=== PATIENT | male | born 1990 | race Caucasian/White ===

== ENCOUNTER 2023-06-30 19:55 | Emergency (ER) | payer OTHER ==
[2023-06-30 20:14] VITALS: TEMP 97; O2SAT 98
--- NOTE | 2023-06-30 20:17 | ERPHSYRPT ---
- History of Present Illness Time Seen by Provider: 06/30/23 20:07 Source: patient Exam Limitations: no limitations Physician History: About 1 hour ago pt was at work([employer] in [place], [place]) cutting a hose with a knife which slipped and cut his left hand; denies current numbness of left hand digits; last tetanus is within 5 years. Allergies/Adverse Reactions: amoxicillin Allergy (Unknown, Verified 06/30/23 20:03) Penicillins Allergy (Unknown, Verified 06/30/23 20:03) - Review of Systems Musculoskeletal: Injury (laceration of left hand) - Nursing Vital Signs Nursing Vital Signs: Initial Vital Signs Pulse Rate 86 06/30/23 20:02 Respiratory Rate 18 06/30/23 20:02 Blood Pressure 129/88 06/30/23 20:02 O2 Sat by Pulse Oximetry 94 L 06/30/23 20:02 Pain Scale Pain Intensity 4 - Physical Exam General Appearance: alert, other (exam limited to left upper extremity) Shoulder Exam: normal ROM Elbow/Forearm Exam: normal ROM Wrist Exam: normal ROM Hand Exam: normal ROM (normal flexion & extension of left hand digits against resistance) Neuro/Tendon Exam: normal sensation, normal motor functions Mental Status Exam: alert, cooperative Skin Exam: laceration (2 cm laceration of proximal ulnar aspect of left palm) Procedures - Laceration/Wound Repair Left Hand Wound Location: Left, hand Wound Length (cm): 2 Wound's Depth, Shape: linear Irrigated: Yes Hibiclens Prep: Yes Anesthesia: 1% Lidocaine Volume Anesthetic (ccs): 3 Wound Repaired With: sutures Suture Size/Type: 4-0, prolene Number of Sutures: 4 Layer Closure?: No Sterile Dressing Applied?: Yes Ordered Tests: Active Orders 24 hr Category Date Time Status Prepare for Sutures STAT Care 06/30/23 20:14 Active Sutures STAT Care 06/30/23 20:15 Active Wound Care STAT Care 06/30/23 20:14 Active Medication Summary Discontinued Medications Generic Name Dose Route Start Last Admin Trade Name Freq PRN Reason Stop Dose Admin Ibuprofen 600 mg 06/30/23 20:16 06/30/23 20:20 Ibuprofen 600 Mg Tablet PO 06/30/23 20:17 600 mg STAT ONE Administration Ibuprofen Confirm 06/30/23 20:19 Ibuprofen 600 Mg Tablet Administered 06/30/23 20:20 Dose 600 mg .ROUTE .STK-MED ONE Lidocaine HCl 5 ml 06/30/23 20:14 06/30/23 20:21 Lidocaine Hcl 1% 20 Ml Mdv 20 Ml Ml IJ 06/30/23 20:15 5 ml STAT ONE Administration - Progress Progress: improved Counseled pt/family regarding: diagnosis, need for follow-up - Departure Departure Disposition: Home Clinical Impression: 2 cm laceration to left hand Condition: Stable Critical Care Time: No Instructions: Laceration Repair With Stitches (DC), Wound Care (DC) Additional Instructions: Apply bacitracin & bandage to left hand wound for the next 10 days. Keep left hand wound clean & dry. Have sutures removed in 10 days. Prescriptions: Cephalexin Mh 500 mg [Keflex 500 mg] 500 mg PO TID #30 cap
[2023-06-30] MEDS ORDERED: MOTRIN 600 MG ONE (20:19)
[2023-06-30] MEDS: MOTRIN 600 MG PO ONE (20:20)
[2023-06-30] MEDS: XYLOCAINE 1% HCL 20 ML MDV IJ ONE (20:21)
[2023-06-30] MEDS ORDERED: BACIGUENT PACKET ONE (20:35)
[2023-06-30] MEDS ORDERED: KEFLEX 500 MG ONE (20:43)
[2023-06-30] MEDS: BACIGUENT PACKET TP ONE (20:44)
[2023-06-30] MEDS: KEFLEX 500 MG PO ONE (20:45)
[2023-06-30 20:54] VITALS: BP 121/72; PULSE 76; RESP 20
== END 2023-06-30 21:00 | disposition home or self-care (01) ==
LOC: ED 19:55
DX: S61.412A Laceration without foreign body of left hand, initial encounter (principal); W26.0XXA Contact with knife, initial encounter; Y92.64 Mine or pit as the place of occurrence of the external cause; Y99.0 Civilian activity done for income or pay
CPT/HCPCS: 12001; 96372; 99283; A9270-GY